=== PATIENT | female | born 1985 | race Two or more races ===

== ENCOUNTER 2023-10-12 09:52 | Outpatient (CLI) | payer OTHER, SELFPAY | END 2023-10-12 09:53 | disposition home or self-care (01) | PROVIDERS: PCP Family Medicine; Visit Provider Family Medicine | DX: Z00.00 Encounter for general adult medical examination without abnormal findings (principal); Z13.6 Encounter for screening for cardiovascular disorders; Z13.0 Encounter for screening for diseases of the blood and blood-forming organs and certain disorders involving the immune mechanism; Z13.1 Encounter for screening for diabetes mellitus | CPT/HCPCS: 80048; 80061 ==

== ENCOUNTER 2024-02-03 09:32 | Outpatient (CLI) | payer OTHER, SELFPAY | END 2024-02-03 09:33 | disposition home or self-care (01) | LOC: NFLDREF 02-08 12:45 | PROVIDERS: PCP Family Medicine; Referring Provider Family Medicine; Visit Provider Family Medicine | DX: E78.5 Hyperlipidemia, unspecified (principal) | CPT/HCPCS: 80061 ==

== ENCOUNTER 2024-09-18 12:19 | Outpatient (CLI) | payer OTHER, SELFPAY | END 2024-09-18 12:20 | disposition home or self-care (01) | LOC: NFLDREF 09-19 10:45 | PROVIDERS: PCP Family Medicine; Referring Provider Family Medicine; Visit Provider Physician Assistant | DX: R30.0 Dysuria (principal) | CPT/HCPCS: 87086; 87186 ==